=== PATIENT | female | born 2000 | race Caucasian/White ===

== ENCOUNTER 2021-12-08 15:27 | Emergency (ER) | payer OTHER ==
[2021-12-08] MEDS ORDERED: Sodium Chloride 0.9% 1000 ML 1,000 ML IV STA (15:52)
[2021-12-08] MEDS ORDERED: Zofran 4 MG/2 ML VIAL IV ONE (15:52)
[2021-12-08] MEDS ORDERED: MORPHINE SULFATE 4 MG INJ IV ONE (15:52)
--- NOTE | 2021-12-08 15:59 | ERPHSYRPT ---
- History of Present Illness Time Seen by Provider: 12/08/21 15:36 Source: patient Exam Limitations: no limitations Patient Subjective Stated Complaint: Pt states "I took two home tests last week and now I am bleeding pretty bad." Triage Nursing Assessment: Pt presented tearful, alert and oriented X 3, skin wpd. pt ambulates with a hunched over gait, able to speak in clear full sentences pt slightly anxious Physician History: Patient is here as threatened miscarriage. Patient states that she is approximately 6 weeks . 2+ test last week. Today she started bleeding around 2 PM. 2 hours prior to arrival. No falls or trauma. Some abdominal cramping. She is not bleeding through more than 1 pad an hour. She has not seen a PCP. She does not know her Rh type. She has never been before. Patient has OB follow-up in approximately 1 month. No other injuries or complaints today. Timing/Duration: today Severity: moderate Modifying Factors: Improves With: nothing Associated Symptoms: nausea, abdominal pain Allergies/Adverse Reactions: No Known Drug Allergies Allergy (Verified 12/08/21 15:40) Home Medications: No Reportable Medications [No Reported Medications] 12/08/21 [History] Hx Tetanus, Diphtheria Vaccination/Date Given: Yes Hx Influenza Vaccination/Date Given: No Hx Pneumococcal Vaccination/Date Given: No Immunizations Up to Date: Yes Travel Risk - International Travel Have you traveled outside of the country in past 3 weeks: No - Coronavirus Screening Are you exhibiting any of the following symptoms?: No Close contact with a COVID-19 positive Pt in past 14-21 Days: No - Vaccine Status Have you recieved a Covid-19 vaccination: No - Review of Systems Constitutional: No Fever, No Chills Eyes: No Symptoms Ears, Nose, & Throat: No Symptoms Respiratory: No Cough, No Dyspnea Cardiac: No Chest Pain, No Edema, No Syncope Abdominal/Gastrointestinal: Abdominal Pain, No Nausea, No Vomiting, No Diarrhea Genitourinary Symptoms: Vaginal Bleeding, No Dysuria Musculoskeletal: No Back Pain, No Neck Pain Skin: No Rash Neurological: No Dizziness, No Focal Weakness, No Sensory Changes Psychological: No Symptoms Endocrine: No Symptoms All Other Systems: Reviewed and Negative - Past Medical History Pertinent Past Medical History: No - Past Surgical History Past Surgical History: No - Social History Smoking Status: Current every day smoker How long have you smoked: years Exposure to second hand smoke: Yes Drug Use: none Patient Lives Alone: No - Female History Hx Last Menstrual Period: 10/22/2021 Hx Now: Yes - Nursing Vital Signs Nursing Vital Signs: Initial Vital Signs Temperature 97.7 F 12/08/21 15:36 Pulse Rate 101 H 12/08/21 15:36 Respiratory Rate 22 12/08/21 15:36 Blood Pressure 115/84 12/08/21 15:36 O2 Sat by Pulse Oximetry 98 12/08/21 15:36 Pain Scale Pain Intensity 6 - Physical Exam General Appearance: no apparent distress, alert Eye Exam: PERRL/EOMI, eyes nml inspection Ears, Nose, Throat Exam: normal ENT inspection, TMs normal, pharynx normal, moist mucous membranes Neck Exam: normal inspection, non-tender, supple, full range of motion Respiratory Exam: normal breath sounds, lungs clear, No respiratory distress Cardiovascular Exam: regular rate/rhythm, normal heart sounds, normal peripheral pulses Gastrointestinal/Abdomen Exam: soft, normal bowel sounds, other (No rebound or guarding.), No tenderness, No mass Back Exam: normal inspection, normal range of motion, No CVA tenderness, No vertebral tenderness Extremity Exam: normal inspection, normal range of motion, pelvis stable Neurologic Exam: alert, oriented x 3, cooperative, normal mood/affect, nml cerebellar function, nml station & gait, sensation nml, No motor deficits Skin Exam: normal color, warm, dry, No rash Lymphatic Exam: No adenopathy SpO2: 98 Ordered Tests: Active Orders 24 hr Category Date Time Status IV Insertion STAT Care 12/08/21 15:52 Active NPO (ED) STAT Care 12/08/21 15:52 Active OB TRANSVAGINAL [US] Stat Exams 12/08/21 15:52 Taken CBC W DIFF Stat Lab 12/08/21 16:04 Completed CMP Stat Lab 12/08/21 16:04 Completed HCG QUALITATIVE,SERUM Stat Lab 12/08/21 16:04 Completed UA W/RFX UR CULTURE Stat Lab 12/08/21 15:52 Ordered Medication Summary Discontinued Medications Generic Name Dose Route Start Last Admin Trade Name Freq PRN Reason Stop Dose Admin Sodium Chloride 1,000 mls @ 999 mls/hr 12/08/21 15:52 12/08/21 17:45 Sodium Chloride 0.9% 1000 Ml IV 12/08/21 16:52 Infused .Q1H1M STA Infusion Sodium Chloride Confirm 12/08/21 16:03 Sodium Chloride 0.9% 1000 Ml Administered 12/08/21 16:04 Dose 1,000 mls @ ud .ROUTE .STK-MED ONE Morphine Sulfate 4 mg 12/08/21 15:52 12/08/21 16:09 Morphine Sulfate 4 Mg/Ml Injection IV 12/08/21 15:53 4 mg STAT ONE Administration Morphine Sulfate Confirm 12/08/21 16:02 Morphine Sulfate 4 Mg/Ml Injection Administered 12/08/21 16:03 Dose 4 mg .ROUTE .STK-MED ONE Ondansetron HCl 4 mg 12/08/21 15:52 12/08/21 16:08 Ondansetron Hcl 4 Mg/2 Ml Vial IV 12/08/21 15:53 4 mg STAT ONE Administration Ondansetron HCl Confirm 12/08/21 16:02 Ondansetron Hcl 4 Mg/2 Ml Vial Administered 12/08/21 16:03 Dose 4 mg .ROUTE .STK-MED ONE Lab/Rad Data: Laboratory Result Diagrams 12/08/21 16:04 12/08/21 16:04 Laboratory Results 12/08/21 12/08/21 12/08/21 Range/Units 16:04 16:04 16:04 WBC (4.0-10.5) K/mm3 RBC (4.1-5.4) M/mm3 Hgb (12.0-16.0) gm/dl Hct (35-47) % MCV (78-100) fl MCH (26-32) pg MCHC (32-36) g/dl RDW (11.5-14.0) % Plt Count (150-450) K/mm3 MPV (7.5-11.0) fl Gran % (36.0-66.0) % Eos # (Auto) (0-0.5) Absolute Lymphs (auto) (1.0-4.6) Absolute Monos (auto) (0.0-1.3) Lymphocytes % (24.0-44.0) % Monocytes % (0.0-12.0) % Eosinophils % (0.00-5.0) % Basophils % (0.0-0.4) % Absolute Granulocytes (1.4-6.9) Basophils # (0-0.4) Sodium 139 (137-145) mmol/L Potassium 3.8 (3.5-5.1) mmol/L Chloride 106 (98-107) mmol/L Carbon Dioxide 23 (22-30) mmol/L Anion Gap 13.0 (5-15) MEQ/L BUN 10 (7-17) mg/dL Creatinine 0.69 (0.52-1.04) mg/dL Estimated GFR > 60.0 ML/MIN Glucose 99 (74-106) mg/dL Calcium 9.2 (8.4-10.2) mg/dL Total Bilirubin 0.40 (0.2-1.3) mg/dL AST 17 (14-36) U/L ALT 15 (0-35) U/L Alkaline Phosphatase 69 (38-126) U/L Serum Total Protein 6.8 (6.3-8.2) g/dL Albumin 4.1 (3.5-5.0) g/dL Serum , Qual POSITIVE (Negative) ABO Group O Rh Factor POSITIVE Antibody Screen NEGATIVE (NEGATIVE) 12/08/21 Range/Units 16:04 WBC 6.2 (4.0-10.5) K/mm3 RBC 4.34 (4.1-5.4) M/mm3 Hgb 13.2 (12.0-16.0) gm/dl Hct 39.0 (35-47) % MCV 89.9 (78-100) fl MCH 30.4 (26-32) pg MCHC 33.8 (32-36) g/dl RDW 13.1 (11.5-14.0) % Plt Count 158 (150-450) K/mm3 MPV 13.6 H (7.5-11.0) fl Gran % 64.5 (36.0-66.0) % Eos # (Auto) 0.08 (0-0.5) Absolute Lymphs (auto) 1.48 (1.0-4.6) Absolute Monos (auto) 0.61 (0.0-1.3) Lymphocytes % 24.1 (24.0-44.0) % Monocytes % 9.9 (0.0-12.0) % Eosinophils % 1.3 (0.00-5.0) % Basophils % 0.2 (0.0-0.4) % Absolute Granulocytes 3.97 (1.4-6.9) Basophils # 0.01 (0-0.4) Sodium (137-145) mmol/L Potassium (3.5-5.1) mmol/L Chloride (98-107) mmol/L Carbon Dioxide (22-30) mmol/L Anion Gap (5-15) MEQ/L BUN (7-17) mg/dL Creatinine (0.52-1.04) mg/dL Estimated GFR ML/MIN Glucose (74-106) mg/dL Calcium (8.4-10.2) mg/dL Total Bilirubin (0.2-1.3) mg/dL AST (14-36) U/L ALT (0-35) U/L Alkaline Phosphatase (38-126) U/L Serum Total Protein (6.3-8.2) g/dL Albumin (3.5-5.0) g/dL Serum , Qual (Negative) ABO Group Rh Factor Antibody Screen (NEGATIVE) - Progress Progress: improved Progress Note: 12/08/21 15:59 Plan for basic labs, Rh screening, consider RhoGam if needed. Will obtain ultr asound to rule out an ectopic 12/08/21 18:15 Patient is Rh+. Therefore I will not need RhoGam today. Ultrasound demonstrates most likely complete miscarriage at this point in time. Patient will need close follow-up with [facility]. Per the ultrasound technicians read no ectopic on ultrasound. Patient feels improved overall. Will give fluids, discharge patient home at this point time. Pain improved Tylenol going home at this point time. Plan of care was discussed with patient and all questions answered. The patient is agreeable to be discharged home and both verbal and printed discharge instructions were provided.The patient agreed to seek outpatient follow up as discussed. The patient was given strict instructions to return to the emergency department for worsening symptoms or any other emergent concerns. The patient verbalized understanding. - Departure Departure Disposition: Home Clinical Impression: Complete miscarriage Condition: Stable Critical Care Time: No Referrals: Provider,Unknown [Primary Care Provider] - Follow up/PCP as directed Instructions: Miscarriage
[2021-12-08] MEDS ORDERED: Zofran 4 MG/2 ML VIAL ONE (16:02)
[2021-12-08] MEDS ORDERED: MORPHINE SULFATE 4 MG INJ ONE (16:02)
[2021-12-08] MEDS ORDERED: Sodium Chloride 0.9% 1000 ML 1,000 ML ONE (16:03)
[2021-12-08 17:03] LABS: ALBUMIN 4.1 g/dL (3.5-5.0); ALKALINE PHOSPHATASE 69 U/L (38-126); BLOOD UREA NITROGEN 10 mg/dL (7-17); CHLORIDE 106 mmol/L (98-107); Calcium 9.2 mg/dL (8.4-10.2); Carbon Dioxide 23 mmol/L (22-30); Creatinine 1 0.69 mg/dL (0.52-1.04); EST GLOMERULAR FILTRATION RATE > 60.0 ML/MIN; Glucose 99 mg/dL (74-106); Potassium 3.8 mmol/L (3.5-5.1); SGOT/AST 17 U/L (14-36); SGPT/ALT 15 U/L (0-35); SODIUM 139 mmol/L (137-145); Total Protein 6.8 g/dL (6.3-8.2)
[2021-12-08 17:12] LABS: Absolute Neutrophil Ct (ANC) 3.97 (1.4-6.9); Basophil (Absolute #) 0.01 (0-0.4); Eosinophil % 1.3 % (0.00-5.0); Eosinophil (Absolute #) 0.08 (0-0.5); Hemoglobin 13.2 gm/dl (12.0-16.0); Lymphocyte (Absolute #) 1.48 (1.0-4.6); Lymphocytes % 24.1 % (24.0-44.0); Mean Cell Volume 89.9 fl (78-100); Mean Corpuscular Hemoglobin 30.4 pg (26-32); Mean Corpuscular Hgb Concent. 33.8 g/dl (32-36); Mean Platelet Volume 13.6 fl (7.5-11.0); Monocyte (Absolute #) 0.61 (0.0-1.3); Monocytes % 9.9 % (0.0-12.0); Neutrophil % 64.5 % (36.0-66.0); Platelet Count 158 K/mm3 (150-450); Red Blood Count 4.34 M/mm3 (4.1-5.4); Red Cell Distribution Width 13.1 % (11.5-14.0); White Blood Count 6.2 K/mm3 (4.0-10.5)
[2021-12-08 17:50] LABS: ABO TYPING O; Antibody Screen NEGATIVE (NEGATIVE); RH TYPING POSITIVE
[2021-12-08 18:05] VITALS: O2SAT 98
[2021-12-08 18:31] VITALS: BP 104/69; PULSE 53
--- NOTE | 2021-12-08 23:23 | XRAY ---
Indication: Threatened . Two-dimensional transvaginal early OB ultrasound performed. Comparison: None Uterus anteverted measuring 6.2 x 5.5 x 5.7 cm. Myometrium homogeneous. Endometrial stripe borderline thickened measuring 1.2 cm. No intrauterine gestational sac, pole, or heart tones. Right ovary measures 3.5 x 1.8 x 3.2 cm and the left measures 2.8 x 1.8 x 3.0 cm. No suspicious adnexal mass or free fluid. Impression: Borderline prominent endometrial stripe. Negative for intrauterine/ectopic . Comment: Preliminary report was given.
== END 2021-12-08 18:35 | disposition home or self-care (01) ==
LOC: ED 15:27
DX: O03.9 Complete or unspecified spontaneous abortion without complication (principal); Z72.0 Tobacco use
CPT/HCPCS: 36000; 36415; 76817; 80053; 81025; 85025; 86850; 86900; 86901; 96360; 96374; 96375; 99284; J2270; J2405